=== PATIENT | female | born 1970 | race Asian ===

== ENCOUNTER 2022-09-05 06:12 | Day surgery (SDC) | payer MEDICAID ==
[2022-08-29 14:30] LABS: Basophils # (auto) 0.1 10 ^3/uL (0-0.2); Basophils % (auto) 1.2 % (0.0-2.0); Eosinophils # (auto) 0.1 10 ^3/uL (0-0.8); Eosinophils % (auto) 1.3 % (0.0-7.0); Hematocrit 39.2 % (36.0-46.0); Hemoglobin 13.1 g/dL (12.2-16.2); Lymphocytes # (auto) 1.5 10 ^3/uL (0.4-5.4); Mean Corpuscular Hemoglobin 29.9 pg (28.0-32.0); Mean Corpuscular Hgb Conc. 33.5 g/dL (32.0-36.0); Mean Corpuscular Volume 89.3 fL (80.0-100.0); Monocytes # (auto) 0.5 10 ^3/uL (0-1.3); Monocytes % (auto) 7.9 % (0.0-12.0); Neutrophils # (auto) 3.7 10 ^3/uL (1.6-8.6); Neutrophils % (auto) 63.6 % (37.0-80.0); Red Blood Cells 4.39 10^6/uL (4.0-5.20); Red Cell Distribution Width 13.4 % (11.8-14.3); White Blood Cell 5.8 10^3/uL (4.4-10.8)
[2022-08-29 14:40] LABS: Urine Bacteria NONE SEEN /hpf (None Seen); Urine Blood Negative /uL (Negative); Urine Mucus FEW (None Seen); Urine Specific Gravity 1.016 (1.001-1.035); Urine WBC 6 /hpf (0 - 5)
[2022-08-29 14:48] LABS: INR 0.99 (0.9-1.15); Partial Thromboplastin Time 27.6 sec (24.6-33.4)
[2022-08-29 15:10] LABS: Calcium 9.2 mg/dL (8.5-10.1); Potassium 3.9 mmol/L (3.5-5.1)
[2022-08-29 15:15] LABS: BUN/Creatinine Ratio 12.3; Bilirubin, Total 0.4 mg/dL (0.2-1.0)
[~2022-09-05] VITALS: Ht 149.9 cm; Wt 54.9 kg
[~2022-09-05 06:12] MED LIST: MET50T PO
[2022-09-05] MEDS ORDERED: ceFAZolin 1GM/50ML 50 ML IV ONE (06:36)
[2022-09-05] MEDS ORDERED: LIDOCAINE 1% (LOCAL ANESTH.) PF 5ml SDV ONE ×2 (06:38→07:03)
[2022-09-05] MEDS ORDERED: BUPIVACAINE 0.25% INJ 50ML VIAL ONE (06:38)
[2022-09-05] MEDS ORDERED: HYDROmorphone HCL 2 MG/ML VL/or syr IV PRN ×2 (07:30)
[2022-09-05] MEDS ORDERED: MORPHINE SULFATE 4 MG/ML SYR/VIAL IV PRN (07:30)
[2022-09-05] MEDS ORDERED: METOCLOPRAMIDE HCL 5MG/ml INJ 2ml VIAL IV PRN (07:30)
[2022-09-05] MEDS ORDERED: fentaNYL CITRATE 100 MCG/2 ML VL ONE (07:40)
[2022-09-05] MEDS ORDERED: SODIUM CHLORIDE LOCK 10 ML ONE (07:40)
[2022-09-05] MEDS ORDERED: DexAMETHasone SOD PHOS 10MG/1ML VIAL INJ ONE (07:40)
[2022-09-05] MEDS ORDERED: PROPOFOL 10 MG/ML 20 ML IV ONE ×2 (07:40→08:33)
[2022-09-05] MEDS ORDERED: MIDAZOLAM HCL 2MG/2ML 2ml VIAL (1mg/ml) ONE (07:40)
[2022-09-05] MEDS ORDERED: ONDANSETRON HCL 4 MG/2 ML VIAL ONE (07:40)
[2022-09-05] MEDS ORDERED: CEPH500C PO (09:36)
[2022-09-05] MEDS ORDERED: HYDR-4902 PO (09:36)
[2022-09-05 10:30] VITALS: BP 118/62
== END 2022-09-05 10:35 | disposition home or self-care (01) ==
LOC: SUR 06:12
PROVIDERS: ATTEND Student in an Organized Health Care Education/Training Program
DX: M20.11 Hallux valgus (acquired), right foot (principal); M20.41 Other hammer toe(s) (acquired), right foot; M24.574 Contracture, right foot; I10 Essential (primary) hypertension; Z79.899 Other long term (current) drug therapy; Z90.49 Acquired absence of other specified parts of digestive tract
CPT/HCPCS: 28232; 28296; 36415; 73620; 73630; 76000; 80053; 81001; 81025; 84702; 85025; 85610; 85730; C1713; J0690; J1100; J2250; J2405; J2704; J3010; J3490

== ENCOUNTER 2023-02-16 08:49 | Emergency (ER) | payer MEDICAID ==
[~2023-02-16] VITALS: Ht 149.9 cm; Wt 57.9 kg
[~2023-02-16 08:49] MED LIST changes: +CEPH500C PO; +HYDR-4902 PO
[2023-02-16 09:45] VITALS: BP 129/69
[2023-02-16] MEDS ORDERED: AZITTAB PO (11:07)
[2023-02-16] MEDS ORDERED: PROM1SOL4 PO (11:07)
[2023-02-16] MEDS ORDERED: ACET1CAP14 PO (11:07)
[2023-02-16] MEDS ORDERED: PRED20TA2 PO (11:07)
[2023-02-16] MEDS ORDERED: PROMETHAZINE-DM 5 ML ORAL SYRUP PO ONE (11:15)
== END 2023-02-16 11:17 | disposition home or self-care (01) ==
LOC: ER 08:49
DX: J40 Bronchitis, not specified as acute or chronic (principal); Z20.822 Contact with and (suspected) exposure to COVID-19; Z90.49 Acquired absence of other specified parts of digestive tract; Z90.89 Acquired absence of other organs; Z98.890 Other specified postprocedural states
CPT/HCPCS: 36415; 71045; 87426; 87804

== ENCOUNTER 2025-10-08 14:33 | Emergency (ER) | payer MEDICAID ==
[~2025-10-08] VITALS: Ht 149.9 cm; Wt 56.8 kg
[~2025-10-08 14:33] MED LIST changes: +ACET1CAP14 PO; +AZIT-185 PO; +AZITTAB PO; +IBU600T PO; +PRED20TA2 PO; +PROM1SOL4 PO
--- NOTE | 2025-10-08 15:37 | ED.PDOC ---
Musculoskeletal HPI Comments 55 y/o F, presents to the ED for CC of lower extremity pain. Patient states, she was helping a family member into the bed, when she heard a click on the the posterior side of her left calf. Following trauma, patient complains of pain to her posterior calf region which worsens with ambulation. No other symptoms or modifying factors are present at this time. Chief Complaint: Lower Extremity Time Seen by MD: 15:35 Primary Care Provider: Nicky GONZALEZ Reviewed Notes: Nurses Notes, Medications, Allergies Allergies: Coded Allergies: NO KNOWN ALLERGIES (Unverified , 01/09/11) Home Meds Active Scripts Ibuprofen Micronized (Ibuprofen) 600 Mg Tab, 600 MG PO TID for 10 Days, #30 TAB Prov:IGNACIA BARRIOS MD 10/08/25 Cyclobenzaprine Hcl (Cyclobenzaprine Hcl) 10 Mg Tab, 10 MG PO TID for 10 Days, #30 TAB Prov:IGNACIA BARRIOS MD 10/08/25 Ibuprofen Micronized (MOTRIN TABLET) 600 Mg Tb, 600 MG PO TID PRN for 5 Days, #15 TAB *Black box warning-NSAIDS can increase risk of [place] & hypertension, GI irritation, ulceration, bleed, perferation. Do not use post cardiac surgery. Use short duration/lowest effective dose. Prov:ZACARIAS HOUSER MD 11/13/23 Azithromycin (ZITHROMAX TABLET) 250 Mg Tb, 250 MG PO DAILY for 5 Days, #5 TAB Prov:ZACARIAS HOUSER MD 11/13/23 Prednisone (Prednisone) 20 Mg Tab, 40 MG PO DAILY for 3 Days, #6 TAB 0 Refills Prov:BUSTER PERDUE 02/16/23 Azithromycin (Zithromax Z-Enrique) 250 Mg Tab, 250 MG PO DAILY for 5 Days, #6 TAB 0 Refills Z-Enrique as directed Prov:BUSTER PERDUE 02/16/23 Acetaminophen (Tylenol) 325 Mg Cap, 325 MG PO Q4HPRN PRN, #30 CAP 0 Refills Take 1-2 caps po q4h prn for pain (Do not exceed 3,000mg of acetaminophen in 24 hours) Prov:BUSTER PERDUE 02/16/23 Promethazine-Dm (Promethazine Dm 6.25-15 mg/5Ml) 1 Lyndsay Lyndsay, 5 ML PO Q6HPRN PRN, #120 ML 0 Refills Prov:BUSTER PERDUE HOGSHEAD FILLER 02/16/23 Hydrocodone-Acetaminophen (Hydrocodone Bitartrate/AC 5-325 mg) 1 Tab Tab, 1 TAB PO Q8HR for 7 Days, #21 TAB Prov:DMITRIY BROWNE DPM 09/05/22 Cephalexin Monohydrate (Cephalexin) 500 Mg Cap, 1 CAP PO BID for 7 Days, #14 TAB Prov:DMITRIY BROWNE DPM 09/05/22 Reported Medications Metoprolol Tartrate (LOPRESSOR TABLET) 50 Mg Tb, 25 MG PO BID, TAB 09/01/22 Information Source: Patient Mode of Arrival: Ambulatory Location: Left Extremity Location: Calf Timing: Minutes Prehospital treatment: None Severity: Moderate Able to Move Extremity: Yes Bear Weight: Limited Pain: Moderate Mechanism: Lifting Onset of Symptoms: After Trauma Symptoms: Pain DVT Risk Factors: NONE Associated signs and symptoms: Leg pain (left leg) Past Medical History PAST MEDICAL HISTORY: Thyroid Surgical History: Appendectomy, Cholecystectomy, 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 Pertinent 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 History Family History Family History: Family hx of stroke Social History Smoker: Non-Smoker Alcohol: Denies ETOH Use Drugs: Denies Drug Use Lives In: Home Constitutional: denies: chills, diaphoresis, fatigue, fever, malaise, sweats, weakness, others EENTM: denies: blurred vision, double vision, ear bleeding, ear discharge, ear drainage, ear pain, ear ringing, eye pain, eye redness, hearing loss, mouth pain, mouth swelling, nasal discharge, nose bleeding, nose congestion, nose pain, photophobia, tearing, throat pain, throat swelling, voice changes, others Respiratory: denies: cough, hemoptysis, orthopnea, SOB at rest, shortness of breath, SOB with excertion, stridor, wheezing, others Cardiovascular: denies: chest pain, dizzy spells, diaphoresis, Dyspnea on exertion, edema, irregular heart beat, left arm pain, lightheadedness, palpitati ons, PND, syncope, others Gastrointestinal: denies: abdomen distended, abdominal pain, blood streaked bowels, constipated, diarrhea, dysphagia, difficulty swallowing, hematemesis, melena, nausea, poor appetite, poor fluid intake, rectal bleeding, rectal pain, vomiting, others Genitourinary: denies: abnormal vagina bleeding, burning, dyspareunia, dysuria, flank pain, frequency, hematuria, incontinence, pain, , vagina discharge, urgency, others Neurological: denies: dizziness, fainting, headache, left sided numbness, left sided weakness, numbness, paresthesia, pre-existing deficit, right sided numbness, right sided weakness, seizure, speech problems, tingling, tremors, weakness, others Musculoskeletal: denies: back pain, gout, joint pain, joint swelling, muscle pain, muscle stiffness, neck pain, others Integumetry: denies: bruises, change in color, change in hair/nails, dryness, laceration, lesions, lumps, rash, wounds, others Allergic/Immunocompromised: denies: Difficulty Healing, Frequent Infections, Hives, Itching, others Hematologic/Lymphatic: denies: anemia, blood clots, easy bleeding, easy bruisin g, swollen glands, others Endocrine: denies: excessive hunger, excessive sweating, excessive thirst, excessive urination, flushing, intolerance to cold, intolerance to heat, unexplained weight gain, unexplained weight loss, others Psychiatric: denies: anxiety, bipolar disorder, depression, hopeless, panic disorder, schizophrenia, sleepless, suicidal, others All Other Systems: Reviewed and Negative Physical Exam General Appearance: Moderate Distress HEENT: Normal ENT Inspection, Pharynx Normal, TMs Normal Neck: Full Range of Motion, Non-Tender, Normal, Normal Inspection Respiratory: Chest Non-Tender, Lungs Clear, No Accessory Muscle Use, No Respiratory Distress, Normal Breath Sounds Cardiovascular: No Edema, No JVD, No Murmur, No Gallop, Normal Peripheral Pulses, Regular Rate/Rhythm Breast Exam: Deferred Gastrointestinal: No Organomegaly, Non Tender, No Pulsatile Mass, Normal Bowel Sounds, Soft Genitalia: Deferred Pelvic: Deferred Rectal: Deferred Extremities: No calf tenderness, Normal capillary refill, Normal inspection, Normal range of motion, No pedal edema, Tender, Other (LEFT LEG AT THE CALF LEVEL IS LOCALIZED TENDERNESS FROM STRETCHED PROBABLY PERONEAL MUSCLE) Neurologic: Alert, skiver machine II-XII nml as Tested, No Motor Deficits, Normal Affect, Normal Mood, No Sensory Deficits Cerebellar Function: Normal Reflexes: Normal Skin: Dry, Normal Color, Warm Peripheral Pulses: 1+ carotid (R), 1+ carotid (L) Lymphatic: No Adenopathy Was a procedure done? Was a procedure done?: No Differential Diagnosis EXT Differential Diagnosis: Sprain, Strain X-Ray, Labs, Meds, VS Vital Signs Date Time Temp Pulse Resp B/P (MAP) Pulse Ox O2 Delivery O2 Flow Rate FiO2 10/08/25 16:18 99.6 73 18 114/80 (91) 98 99.6 10/08/25 16:18 73 18 98 Room Air 10/08/25 14:35 98.2 81 16 134/66 99 98.2 X-Ray, Labs, Meds, VS Comment COURSE IN THE FASTTRACK EVENTFUL PATIENT HAS STRAINED A MUSCLE TO A LEFT CALF DISCHARGE WITH A AN RAUL WRAP SACRAL BENAZEPRIL SEEN AND NAPROXEN Time of 1ST Reevaluation: 16:05 Reevaluation 1ST: Unchanged Reevaluation 2ND: Unchanged Consultation: PCP Patient Education/Counseling: Diagnosis, Treatment, Prognosis, Need For Follow Up Family Education/Counseling: Diagnosis, Treatment, Prognosis, Need For Follow Up, No Family Present Departure 1 Departure Time of Disposition: 17:57 Impression: Primary Impression: Muscle strain of left lower leg Qualified Codes: S86.912A - Strain of unspecified muscle(s) and tendon(s) at lower leg level, left leg, initial encounter Disposition: HOME / SELF CARE / HOMELESS Condition: Fair Additional Instructions: HEAT AND APPLY AN RAUL WRAP e-Prescriptions Ibuprofen Micronized (Ibuprofen) 600 Mg Tab 600 MG PO TID for 10 Days, #30 TAB Prov: IGNACIA BARRIOS MD 10/08/25 Cyclobenzaprine Hcl (Cyclobenzaprine Hcl) 10 Mg Tab 10 MG PO TID for 10 Days, #30 TAB Prov: IGNACIA BARRIOS MD 10/08/25 Discharged With: Self Critical Care Note Critical Care Time?: No Stability Stability form required: No Heart Score Heart Score: Heart Score Response (Comments) Value History N/A 0 EKG N/A 0 Age 45-64 1 Risk Factors No known risk factors 0 Troponin N/A 0 Total 1 I personally scribed for IGNACIA BARRIOS MD ([email or web address]) on 10/08/25 at 15:37. Electronically submitted by Angie Romano ([email or web address]). I personally scribed for IGNACIA BARRIOS MD ([email or web address]) on 10/08/25 at 15:40. Electronically submitted by Angie Romano ([email or web address]). IGNACIA BARRIOS MD Oct 08, 2025 15:37
[2025-10-08] MEDS ORDERED: IBUP1TAB5 PO (15:54)
[2025-10-08] MEDS ORDERED: CYCL-839 PO (15:54)
[2025-10-08 16:18] VITALS: BP 114/80; PULSE 73; RESP 18; TEMP 99.6; O2SAT 98
== END 2025-10-08 16:20 | disposition home or self-care (01) ==
LOC: ER 14:33
DX: S86.912A Strain of unspecified muscle(s) and tendon(s) at lower leg level, left leg, initial encounter (principal); Z79.899 Other long term (current) drug therapy; Z79.52 Long term (current) use of systemic steroids; Z79.1 Long term (current) use of non-steroidal anti-inflammatories (NSAID); Z90.49 Acquired absence of other specified parts of digestive tract; Z98.890 Other specified postprocedural states; X58.XXXA Exposure to other specified factors, initial encounter; Y93.89 Activity, other specified; Y92.89 Other specified places as the place of occurrence of the external cause; Y99.8 Other external cause status

== ENCOUNTER 2025-11-19 14:07 | Emergency (ER) | payer MEDICAID ==
[~2025-11-19] VITALS: Ht 149.9 cm; Wt 55.0 kg
[~2025-11-19 14:07] MED LIST changes: +CYCL-839 PO; +IBUP1TAB5 PO
--- NOTE | 2025-11-19 15:55 | ED.PDOC ---
HPI Allergic reaction HPI Comments This is a 55 year old female presenting to the ED with chief complaint of allergic reaction. Patient reports that she started to experience a rash to her chest, back, and abdomen since earlier this morning that has started to spread with associated itchiness. Patient relays that she is unsure what she was exposed to that caused this allergic reaction. Patient denies any SOB, throat swelling, dizziness, syncope, or fever. Chief Complaint: Rash Time Seen by MD: 15:53 Primary Care Provider: Nicky GONZALEZ Reviewed Notes: Nurses Notes, Medications, Allergies Allergies: Coded Allergies: NO KNOWN ALLERGIES (Unverified , 01/09/11) Home Meds Active Scripts Ibuprofen Micronized (Ibuprofen) 600 Mg Tab, 600 MG PO TID for 10 Days, #30 TAB Prov:IGNACIA BARROIS MD 10/08/25 Cyclobenzaprine Hcl (Cyclobenzaprine Hcl) 10 Mg Tab, 10 MG PO TID for 10 Days, #30 TAB Prov:IGNACIA BARRIOS MD 10/08/25 Ibuprofen Micronized (MOTRIN TABLET) 600 Mg Tb, 600 MG PO TID PRN for 5 Days, #15 TAB *Black box warning-NSAIDS can increase risk of [place] & hypertension, GI irritation, ulceration, bleed, perferation. Do not use post cardiac surgery. Use short duration/lowest effective dose. Prov:ZACARIAS HOUSER MD 11/13/23 Azithromycin (ZITHROMAX TABLET) 250 Mg Tb, 250 MG PO DAILY for 5 Days, #5 TAB Prov:ZACARIAS HOUSER MD 11/13/23 Prednisone (Prednisone) 20 Mg Tab, 40 MG PO DAILY for 3 Days, #6 TAB 0 Refills Prov:BUSTER PERDUE 02/16/23 Azithromycin (Zithromax Z-Enriuqe) 250 Mg Tab, 250 MG PO DAILY for 5 Days, #6 TAB 0 Refills Z-Enrique as directed Prov:BUSTER PERDUE 02/16/23 Acetaminophen (Tylenol) 325 Mg Cap, 325 MG PO Q4HPRN PRN, #30 CAP 0 Refills Take 1-2 caps po q4h prn for pain (Do not exceed 3,000mg of acetaminophen in 24 hours) Prov:BUSTER PERDUE 3/27/23 Promethazine-Dm (Promethazine Dm 6.25-15 mg/5Ml) 1 Lyndsay Lyndsay, 5 ML PO Q6HPRN PRN, #120 ML 0 Refills Prov:BUSTER PERDUE PORTABLE GRINDING MACHINE OPERATOR 02/16/23 Hydrocodone-Acetaminophen (Hydrocodone Bitartrate/AC 5-325 mg) 1 Tab Tab, 1 TAB PO Q8HR for 7 Days, #21 TAB Prov:DMITRIY BROWNE Nicky DPM 09/05/22 Cephalexin Monohydrate (Cephalexin) 500 Mg Cap, 1 CAP PO BID for 7 Days, #14 TAB Prov:DIAZ BROWNENADEEN Saunders DPM 09/05/22 Reported Medications Metoprolol Tartrate (LOPRESSOR TABLET) 50 Mg Tb, 25 MG PO BID, TAB 09/01/22 Information Source: Patient Mode of Arrival: Ambulatory Severity: Moderate Rash: Moderate SOB: None Difficulty swallowing: None Pruritus: Moderate Timing: Hours Duration: Since onset Prehospital treatment: None Location: Abdomen, Back, Chest Exposed to: Unknown Developed: Pruritus, Rash History of: None Modyifying Factors: Diphenhydramine Associated Sign and Symptoms: None Past Medical History PAST MEDICAL HISTORY: Thyroid Surgical History: Appendectomy, Cholecystectomy, 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: No Pertinent PUNCHER 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 Family History Family History: Family hx of stroke Social History Smoker: Non-Smoker Alcohol: Denies ETOH Use Drugs: Denies Drug Use Lives In: Home Constitutional: denies: chills, diaphoresis, fatigue, fever, malaise, sweats, weakness, others EENTM: denies: blurred vision, double vision, ear bleeding, ear discharge, ear drainage, ear pain, ear ringing, eye pain, eye redness, hearing loss, mouth pain, mouth swelling, nasal discharge, nose bleeding, nose congestion, nose pain, photophobia, tearing, throat pain, throat swelling, voice changes, others Respiratory: denies: cough, hemoptysis, orthopnea, SOB at rest, shortness of breath, SOB with excertion, stridor, wheezing, others Cardiovascular: denies: chest pain, dizzy spells, diaphoresis, Dyspnea on exertion, edema, irregular heart beat, left arm pain, lightheadedness, palpitations, PND, syncope, others Gastrointestinal: denies: abdomen distended, abdominal pain, blood streaked bowels, constipated, diarrhea, dysphagia, difficulty swallowing, hematemesis, melena, nausea, poor appetite, poor fluid intake, rectal bleeding, rectal pain, vomiting, others Genitourinary: denies: abnormal vagina bleeding, burning, dyspareunia, dysuria, flank pain, frequency, hematuria, incontinence, pain, , vagina discharge, urgency, others Neurological: denies: dizziness, fainting, headache, left sided numbness, left sided weakness, numbness, paresthesia, pre-existing deficit, right sided numbness, right sided weakness, seizure, speech problems, tingling, tremors, weakness, others Musculoskeletal: denies: back pain, gout, joint pain, joint swelling, muscle pain, muscle stiffness, neck pain, others Integumetry: denies: bruises, change in color, change in hair/nails, dryness, laceration, lesions, lumps, rash, wounds, others Allergic/Immunocompromised: reports: Hives, Itching; denies: Difficulty Healing, Frequent Infections, others Hematologic/Lymphatic: denies: anemia, blood clots, easy bleeding, easy bruising, swollen glands, others Endocrine: denies: excessive hunger, excessive sweating, excessive thirst, excessive urination, flushing, intolerance to cold, intolerance to heat, unexplained weight gain, unexplained weight loss, others Psychiatric: denies: anxiety, bipolar disorder, depression, hopeless, panic disorder, schizophrenia, sleepless, suicidal, others All Other Systems: Reviewed and Negative Physical Exam General Appearance: Moderate Distress, Normal HEENT: Normal ENT Inspection, Pharynx Normal, TMs Normal Neck: Full Range of Motion, Non-Tender, Normal, Normal Inspection Respiratory: Chest Non-Tender, Lungs Clear, No Accessory Muscle Use, No Respiratory Distress, Normal Breath Sounds Cardiovascular: No Edema, No JVD, No Murmur, No Gallop, Normal Peripheral Pulses, Regular Rate/Rhythm Breast Exam: Deferred Gastrointestinal: No Organomegaly, Non Tender, No Pulsatile Mass, Normal Bowel Sounds, Soft Genitalia: Deferred Pelvic: Deferred Rectal: Deferred Extremities: No calf tenderness, Normal capillary refill, Normal inspection, No rmal range of motion, Non-tender, No pedal edema Musculoskeletal : Apperance: Normal Neurologic: Alert, brim pouncing machine operator II-XII nml as Tested, No Motor Deficits, Normal Affect, Normal Mood, No Sensory Deficits Cerebellar Function: Normal Reflexes: Normal Skin: Dry, Normal Color, Rash (Chest back), Warm Peripheral Pulses: 3+ Radial (R), 3+ Radial (L) Lymphatic: No Adenopathy Was a procedure done? Was a procedure done?: No Differential diagnosis (all) Differential Diagnosis: Anaphylaxis, Drug Reaction, Urticaria X-Ray, Labs, Meds, VS Vital Signs Date Time Temp Pulse Resp B/P (MAP) Pulse Ox O2 Delivery O2 Flow Rate FiO2 11/19/25 14:11 97.6 69 14 136/89 98 97.6 Patient alert. Came in because of rash. Vitals stable. Answering questions. No leg swelling. No shortness a breath. No chest pain. Was given steroid. Was given prescription of prednisone. Was told to follow up with her primary care physician. Was told to come back if there is any problem. Time of 1ST Reevaluation: 16:53 Reevaluation 1ST: Improved Patient Education/Counseling: Diagnosis, Treatment Family Education/Counseling: No Family Present SEPSIS Sepsis Screen Date sepsis recognized/suspect: Nov 19, 2025 Time Sepsis recognized/suspect: 1411 Recent Procedure: No On Antibiotic Therapy: No Respiratory Rate >20: No Heart Rate >90: No Temp<36 C (96.8 F) or >38.3 C: No SBP <90 or MAP <65 mmHG: No New Acute Mental Status Change: No Is the patient on CPAP, BIPAP,: No Vital Signs Date Time Temp Pulse Resp B/P (MAP) Pulse Ox O2 Delivery O2 Flow Rate FiO2 11/19/25 14:11 97.6 69 14 136/89 98 97.6 Departure 1 Departure Time of Disposition: 17:33 Impression: Primary Impression: Erythematous rash Disposition: 01 HOME / SELF CARE / HOMELESS Condition: Good e-Prescriptions Prednisone (Prednisone) 20 Mg Tab 20 MG PO DAILY for 5 Days, #5 MG Prov: ZACARIAS HOUSER MD 11/19/25 Discharged With: Self Critical Care Note Critical Care Time?: No Stability Stability form required: No Heart Score Heart Score: Heart Score Response (Comments) Value History N/A 0 EKG N/A 0 Age N/A 0 Risk Factors N/A 0 Troponin N/A 0 Total 0 I personally scribed for ZACARIAS HOUSER MD ([email or web address]) on 11/19/25 at 15:55. Electronically submitted by Stevan Fair ([email or web address]). ZACARIAS HOUSER MD Nov 19, 2025 15:55
[2025-11-19] MEDS ORDERED: PRED20TA2 PO (17:34)
[2025-11-19 19:11] VITALS: BP 140/75; PULSE 70; RESP 20; TEMP 98.3; O2SAT 99
[2025-11-19] MEDS: methylPREDNISolone SOD SUCC 125 MG/2 ML VL IM ONE (19:19)
== END 2025-11-19 19:26 | disposition home or self-care (01) ==
LOC: ER 14:07
DX: L53.9 Erythematous condition, unspecified (principal); R21 Rash and other nonspecific skin eruption; Z79.899 Other long term (current) drug therapy; Z90.49 Acquired absence of other specified parts of digestive tract; Z79.52 Long term (current) use of systemic steroids; Z79.1 Long term (current) use of non-steroidal anti-inflammatories (NSAID)
CPT/HCPCS: 96372; 99283; J2919